=== PATIENT | male | born 1955 ===

== ENCOUNTER 2017-01-15 16:10 | Emergency (ER) | payer BC, OTHER ==
[~2017-01-15] VITALS: Ht 180.3 cm; Wt 106.0 kg
[~2017-01-15 16:10] MED LIST: ATENOLOL DAILY; HCTZ DAILY; LISINOPRIL DAILY; OTHER BP MED
[2017-01-15 16:23] VITALS: TEMP 36.3; Ht 180.3 cm; Wt 106.0 kg
--- NOTE | 2017-01-15 18:22 | DIAGNOSTIC IMAGING REPORT ---
LUMBAR SPINE 3 VIEWS HISTORY: Low back pain. fall right hip pian COMPARISON: None. FINDINGS: There is no fracture. No subluxation. Mild disc space narrowing at L2-L3, L3-L4, and L4-L5. There are endplate osteophytes. Moderate facet degenerative changes seen within the lower lumbar spine. Minimal anterior wedging within the T11 vertebral body is likely chronic. IMPRESSION: No fracture or subluxation within the lumbar spine. Electronically signed by: Malcolm Gastelum M.D. 01/15/2017 6:21 PM Dictated Date/Time: 01/15/2017 6:19 PM
--- NOTE | 2017-01-15 18:25 | DIAGNOSTIC IMAGING REPORT ---
PELVIS 1 OR 2 VIEW ROUTINE, RIGHT FEMUR 2 VIEWS ROUTINE CLINICAL HISTORY: fall right hip pian COMPARISON STUDY: None. FINDINGS: Lateral soft tissue swelling within the right hip. No fracture or dislocation within the pelvis, hips, or right femur. The sacrum appears intact. 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 IMPRESSION: Lateral soft tissue swelling within the right hip. No acute fracture or dislocation within the pelvis, hips, right femur. Electronically signed by: Malcolm Gastelum M.D. 01/15/2017 6:24 PM Dictated Date/Time: 01/15/2017 6:21 PM
[2017-01-15] MEDS ORDERED: ASPI81TA28 PO (18:47)
[2017-01-15] MEDS ORDERED: TPRSR/50 (18:47)
[2017-01-15 18:49] VITALS: BP 177/109; PULSE 61; O2SAT 97
--- NOTE | 2017-01-15 22:15 | EMERGENCY ROOM VISIT NOTE ---
History Report prepared by Nilesh: Saji Hutchinson Under the Supervision of: Dr. Tim Murry D.O. First contact with patient: 16:41 Chief Complaint: FALL Stated Complaint: HIP/BACK PAIN History of Present Illness The patient is a 61 year old male who presents to the Emergency Room with complaints of constant right hip pain s/p fall occurring 1.5 hours ago. He also complains of pain in his lower back. He states that he was shopping at [employer] when he slipped and fell on oil. The patient states that he landed on his right hip and lower back. He states that he was unable to get up for around 10 minutes, but has been able to ambulate since. He did not hit his head or lose consciousness. The patient is not on any blood thinners. Pt denies headache, change in vision, fevers, chest pain, shortness of breath, numbness, weakness, nausea, vomiting, diarrhea, pain with urination, and melena. His tetanus is up to date. Source of History: patient Onset: 1.5 hour ago Position: pelvis (right) Timing: constant Associated Symptoms: No LOC, No SOB, No abdominal pain, No back pain, No chest pain, No fevers, No nausea, No numbness, No urinary symptoms, No vomiting , No weakness Note: The patient also complains of lower back pain. Review of Systems See HPI for pertinent positives & negatives. A total of 10 systems reviewed and were otherwise negative. Past Medical & Surgical Medical Problems: (1) HTN (hypertension) (2) Hyperlipidemia Family History No pertinent family history stated. Social History Smoking Status: Never Smoker Current/Historical Medications Scheduled Aspirin (Aspirin Ec), 81 MG PO DAILY Miscellaneous Medications Metoprolol Succinate (Metoprolol Succinate ER) Allergies Coded Allergies: No Known Allergies (Verified Allergy, Mild, 09/06/03) SEASONAL ALLERGIES Physical Exam Vital Signs Date Time Temp Pulse Resp B/P Pulse Ox O2 Delivery O2 Flow Rate FiO2 01/15/17 18:49 61 18 177/109 97 Room Air 01/15/17 17:32 59 18 185/105 96 Room Air 01/15/17 16:23 36.3 67 18 183/119 95 Room Air Physical Exam GENERAL: Sitting up in bed, alert, well appearing, well nourished, no distress, non-toxic HEAD: normal cephalic, atraumatic EYE EXAM: normal conjunctiva, PERRL and EOM's grossly intact OROPHARYNX: no exudate, no erythema, lips, buccal mucosa, and tongue normal and mucous membranes are moist EARS: TMs clear b/l NECK: supple, no nuchal rigidity, no adenopathy, non-tender CHEST: stable to compression anteriorly and posteriorly LUNGS: clear to auscultation. Normal chest wall mechanics HEART: no murmurs, S1 normal and S2 normal ABDOMEN: abdomen soft, non-tender, normo-active bowel sounds, no masses, no rebound or guarding. PELVIS: stable to compression anteriorly and posteriorly Large contusion to the right proximal hip. BACK: Back is symmetrical on inspection and there is no deformity. Minimal discomfort and tenderness in the left lumbar paraspinal region. UPPER EXTREMITIES: full active and passive range of motion of all joints without tenderness to palpation LOWER EXTREMITIES: full active and passive range of motion of all joints without tenderness to palpation NEURO EXAM: Normal sensorium, cranial nerves II-XII grossly intact, normal speech, no gross weakness of arms, no gross weakness of legs. GCS: 15. Medical Decision & Procedures ER Provider Diagnostic Interpretation: Radiology results as stated below per my review and the radiologist's interpretation: PELVIS 1 OR 2 VIEW ROUTINE, RIGHT FEMUR 2 VIEWS ROUTINE FINDINGS: Lateral soft tissue swelling within the right hip. No fracture or dislocation within the pelvis, hips, or right femur. The sacrum appears intact. 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 IMPRESSION: Lateral soft tissue swelling within the right hip. No acute fracture or dislocation within the pelvis, hips, right femur. Electronically signed by: Malcolm Gastelum M.D. LUMBAR SPINE 3 VIEWS FINDINGS: There is no fracture. No subluxation. Mild disc space narrowing at L2-L3, L3-L4, and L4-L5. There are endplate osteophytes. Moderate facet degenerative changes seen within the lower lumbar spine. Minimal anterior wedging within the T11 vertebral body is likely chronic. IMPRESSION: No fracture or subluxation within the lumbar spine. Electronically signed by: Malcolm Gastelum M.D. ED Course ED COURSE: Vital signs were reviewed and showed hypertension and tachycardia The patients medical record was reviewed The above diagnostic studies were performed and reviewed. ED treatments and interventions as stated above. 1648: The patient was evaluated in room C3. A complete history and physical examination was performed. 1813: The patient has returned from x-ray. 1849: Upon reevaluation, the patient is resting comfortably. I discussed my findings with the patient and he understands and agrees with the treatment plan. Based on the patients age, coexisting illnesses, exam and lab findings the decision to treat as an outpatient was made. The patient remained stable while under my care. The patient appeared well at the time of discharge. Medical Decision Differential diagnoses include major intracranial, cervical, spinal, thoracic, abdominal, pelvic and neurologic injury. Fracture, contusion, sprain, strain, laceration, abrasions included as well. Patient is a 61-year-old male who presents the ER following a fall for right hip pain. On exam he has a large contusion. He has full active and passive range of motion. Takes no blood thinners. No head or neck trauma. Previous history of back surgeries. X-rays of his pelvis, lumbar spine and right femur show no acute fractures. He is able to ambulate. He was discharged follow-up with his primary care doctor for a contusion of his right hip. Discussed with Pt concerning signs and symptoms to watch out for. Pt was instructed to follow up with their PCP and discussed with the patient their option to return to the ED at anytime for persistent or worsening symptoms. The appropriate anticipatory guidance and out-patient management, including indications for return to the emergency department, were explained at length to the patient and understood. Impression Primary Impression: Contusion, hip Additional Impression: Fall Scribe Attestation The scribe's documentation has been prepared under my direction and personally reviewed by me in its entirety. I confirm that the note above accurately reflects all work, treatment, procedures, and medical decision making performed by me. Departure Information Dispostion Home / Self-Care Referrals Thea Ivey M.D. (PCP) Forms HOME CARE DOCUMENTATION FORM, IMPORTANT VISIT INFORMATION Patient Instructions ED Contusion Lower Ext, My [facility] Additional Instructions Please follow up with your primary care doctor with in the next 24 hours. Any worsening of your symptoms, please return to the ED immediately. This includes numbness or weakness in the leg, worsening pain, inability to ambulate on it or any other concerning signs or symptoms from your standpoint. If you continue to have pain over the next 3-5 days you may need repeat x-rays as there is a small chance that a hairline fracture could've been missed Please take Tylenol as needed for fevers. Problem Qualifiers Primary Impression: Contusion, hip Encounter type: initial encounter Laterality: right Qualified Codes: S70.01XA - Contusion of right hip, initial encounter Additional Impression: Fall Encounter type: initial encounter Qualified Codes: W19.XXXA - Unspecified fall, initial encounter
== END 2017-01-15 19:05 | disposition home or self-care (01) ==
LOC: C.EDB 16:10 → C.EDC 19:05
DX: S70.01XA Contusion of right hip, initial encounter (principal); W01.0XXA Fall on same level from slipping, tripping and stumbling without subsequent striking against object, initial encounter; Y92.512 Supermarket, store or market as the place of occurrence of the external cause; I10 Essential (primary) hypertension; E78.5 Hyperlipidemia, unspecified; Z79.82 Long term (current) use of aspirin

== ENCOUNTER → 2017-01-27 | Outpatient (CLI) | payer BC ==
[~2017-01-27] MED LIST changes: +ASPI81TA28 PO; -ATENOLOL DAILY; -HCTZ DAILY; -LISINOPRIL DAILY; -OTHER BP MED; +TPRSR/50
--- NOTE | 2017-01-27 11:12 | DIAGNOSTIC IMAGING REPORT ---
RIGHT RIBS UNILATERAL WITH PA CHEST CLINICAL HISTORY: Right anterior rib pain following trauma. COMPARISON STUDY: No previous studies for comparison. FINDINGS: There is no pneumothorax or pleural effusion. Lungs are clear. Cardiac size is at the upper limits of normal. There is no evidence of pulmonary edema. There are acute nondisplaced fractures of the anterior right sixth and seventh ribs. IMPRESSION: Acute nondisplaced fractures of the anterior right sixth and seventh ribs. No pneumothorax. Electronically signed by: Chele Hutchins M.D. 01/27/2017 11:11 AM Dictated Date/Time: 01/27/2017 10:53 AM
== END | disposition home or self-care (01) ==
LOC: C.RAD1850 10:27
PROVIDERS: ATTEND Family Medicine
DX: R07.9 Chest pain, unspecified (principal)

== ENCOUNTER → 2017-08-08 | Outpatient (CLI) | payer BC ==
[2017-08-08 12:27] LABS: BASO % 0.3 %; BASO ABS # 0.02 K/uL (0-0.2); COMPLETE YES; EOS % 3.3 %; HEMATOCRIT 43.1 % (42-52); IG% 1.4 %; LYMPH % 15.7 %; LYMPH ABS # 0.99 K/uL (1.2-3.4); MEAN CELL VOLUME 87.8 fL (80-100); MEAN CORPUSCULAR HEMOGLOBIN 31.2 pg (25-34); MEAN CORPUSCULAR HGB CONC 35.5 g/dl (32-36); MONO % 8.5 %; NEUT % 70.8 %; PLATELET COUNT 151 K/uL (130-400); RED BLOOD COUNT 4.91 M/uL (4.7-6.1); WHITE BLOOD COUNT 6.32 K/uL (4.8-10.8)
[2017-08-08 12:45] LABS: ALT/SGPT 25 U/L (12-78); AST/SGOT 17 U/L (15-37); BLOOD UREA NITROGEN 14 mg/dl (7-18); CALCIUM 8.9 mg/dl (8.5-10.1); CARBON DIOXIDE 29 mmol/L (21-32); CHLORIDE 103 mmol/L (98-107); CREATININE 0.98 mg/dl (0.60-1.40); GLUCOSE 97 mg/dl (70-99); IMMUNOGLOBULN A 74.6 mg/dL (70-400); POTASSIUM 3.7 mmol/L (3.5-5.1); SODIUM 137 mmol/L (136-145)
[2017-08-08 12:54] LABS: ALB/GLOB RATIO 1.4 (0.9-2); ALKALINE PHOSPHATASE 64 U/L (45-117); IMMUNOGLOBULN M 69.8 mg/dL (40-230)
== END | disposition home or self-care (01) ==
LOC: C.LAB1850 10:30
PROVIDERS: ATTEND Internal Medicine Pulmonary Disease
DX: L30.9 Dermatitis, unspecified (principal); L50.9 Urticaria, unspecified

== ENCOUNTER → 2018-01-11 | Outpatient (CLI) | payer OTHER | END | disposition home or self-care (01) | LOC: C.LABSPEC 12:42 | PROVIDERS: ATTEND Physician Assistant | DX: R21 Rash and other nonspecific skin eruption (principal) ==